=== PATIENT | male | born 1985 | race Caucasian/White ===

== ENCOUNTER 2022-05-02 09:14 | Emergency (ER) | payer MEDICAID, SELFPAY ==
[2022-05-02] VITALS (7 sets, daily range): BP systolic 106–140; BP diastolic 63–87; PULSE 58–69; RESP 12–17; TEMP 36.8–36.9; O2SAT 95–98; BMI 23.6
--- NOTE | 2022-05-02 09:15 | ECG_ITS ---
APPROVED REPORT Exam: Resting ECG HR:69 bpm ECG Measurements Heart Rate 69 AXES TN 153 P 50 QRSd 89 QRS 67 QT 390 T 26 QTc 409 Conclusion SINUS RHYTHM NORMAL ECG UNCONFIRMED REPORT Electronically signed by : Andrew Fairchild MD 05/02/2022 17:35:58
--- NOTE | 2022-05-02 09:20 | XR_ITS ---
FINAL REPORT CLINICAL HISTORY: cp; cough FINDINGS: Two views of the chest show vague opacity in the right perihilar region consistent with pneumonia. The left lung is clear. Pulmonary vascularity is normal. Heart and mediastinum are unremarkable. No pleural effusion is present. IMPRESSION: Opacity in the right perihilar region consistent with pneumonia. Recommend continued follow-up to resolution. Reviewed, Interpreted and Dictated by Sivan Mcqueen MD Transcribed by Sade Cullen Authenticated and [facility]
--- NOTE | 2022-05-02 09:24 | HMH.EDGENADL ---
Discharge Plan Disposition Patient Disposition: Home, Self-Care Condition: Good Prescriptions Prescriptions: New benzonatate 200 mg capsule 200 mg PO TID PRN (Reason: cough) Qty: 20 0RF amoxicillin 500 mg tablet 1,000 mg PO TID 10 Days Qty: 60 0RF Referrals Follow up/Referrals: Provider,Referral, [Primary Care Provider] - See instructions Activity Restrictions/Add. Instructions Additional Instructions/Restrictions: You were evaluated in the emergency department today and diagnosed with pneumonia. 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 Take Tylenol and ibuprofen as needed for pain. Return to the emergency department for any new or worsening symptoms. Follow-up with your primary care provider over the next 48 hours. Clinical Impressions Clinical Impression: Pneumonia Qualifiers: Pneumonia type: due to unspecified organism Laterality: left Lung location: upper lobe of lung Qualified Code(s): J18.9 - Pneumonia, unspecified organism Instructions Patient Instructions: DI for Pneumonia -- Adult, DI for Atypical Chest Pain Discharge ED Provider: Brionna Simpson General Adult HPI General Chief complaint: Chest Pain Stated complaint: Chest pain Time Seen by Provider: 05/02/22 09:16 History of Present Illness HPI narrative: This patient is a 37-year-old male who denies significant past medical history presented to the emergency department for evaluation of substernal chest pain he reports he has had 1 month of productive cough with yellow sputum. He states that over this time period, he is also had unintentional 20 pound weight loss. He states that for the last 5 days, he has had severe substernal chest pain that is worse with coughing. Today, he states that when he coughed it brought him to his knees. Nothing seems to make it better or worse, though he has not tried any medications at home. He denies any recent fevers, chills, abdominal pain, nausea, vomiting, changes bowel movements, rashes, or swelling. He denies any history of blood clots or clotting disorders. He does admit to extensive smoking history, but denies any alcohol, substance, or IV drug use. Related Data Previous Rx's Medication Instructions Recorded amoxicillin 500 mg tablet 1,000 mg PO TID 10 days #60 tabs 05/02/22 benzonatate 200 mg capsule 200 mg PO TID PRN cough #20 caps 05/02/22 Allergies Allergy/AdvReac Type Severity Reaction Status Date / Time tramadol [TRAMADOL] Allergy Mild Unverified 03/26/17 14:56 ibuprofen AdvReac Verified 05/02/22 09:41 [facility] Disclaimer: The information contained in this section may have been updated after the patient was seen, as this information can be updated by other users. Social History Smoking Status: Current every day smoker alcohol intake: never current occupational status: employed Travel in the last 8 weeks: None ROS Obtained: Yes All systems reviewed & no additional complaints except as documented 14 point review of systems obtained and negative except as mentioned in HPI. Physical Exam General General appearance: alert and in no apparent distress Head Head exam: atraumatic and normocephalic Eye Eye exam: Present normal appearance, PERRL and EOMI ENT ENT exam: Present normal exam, normal oropharynx and mucous membranes moist Neck Neck exam: Present normal inspection and full ROM Chest Chest inspection: Present normal inspection, symmetric chest wall rise and tenderness (Tenderness to palpation over the sternum and left chest) Respiratory Respiratory exam: Present normal lung sounds bilaterally; Absent respiratory distress, wheezes, stridor, accessory muscle use or prolonged expiratory phase Cardiovascular Cardiovascular exam: Present regular rate and normal rhythm Abdominal Exam Abdominal exam: Present soft; Absent distention, tenderness or guarding Extremitie
--- NOTE | 2022-05-02 09:32 | PC.NURSE ---
pt returned from radiology via
--- NOTE | 2022-05-02 09:38 | PC.NURSE ---
Family at [facility]
[2022-05-02 09:50] LABS: Basophils % 0.7 % (0.1-2.0); Eosinophils # 0.3 K/mm3 (0.0-0.4); Eosinophils % 4.3 % (0.1-12.0); Hematocrit 41.9 % (42.0-52.0); Lymphocytes # 1.6 K/mm3 (0.7-4.5); Lymphocytes % 26.5 % (10-50); Mean Corpuscular HGB Conc 33.5 g/dL (31.8-35.4); Mean Corpuscular Hemoglobin 30.5 pg (27.0-31.2); Mean Platelet Volume 8.3 fl (7.4-10.4); Monocytes # 0.2 K/mm3 (0.1-1.0); Monocytes % 3.2 % (1.7-9.3); Neutrophils # 3.8 K/mm3 (1.8-7.8); Neutrophils % 65.3 % (37.0-80.0); Platelet Count 370 K/mm3 (142-424); Red Cell Distribution Width 14.5 % (11.5-17.5); White Blood Count 5.9 K/mm3 (4.8-10.8)
[2022-05-02 09:53] LABS: Chloride 102 mmol/L (98-107); Sodium 140 mmol/L (136-145)
[2022-05-02 09:54] LABS: Potassium 3.9 mmoL/L (3.5-5.1)
[2022-05-02 09:56] LABS: Alanine Aminotransferase 23 U/L (12-78); Albumin/Globulin Ratio 1.3 (1.1-1.8); Alkaline Phosphatase 66 U/L (38-126); Anion Gap 9.9 mEq/L (5-15); Aspartate Amino Transferase 31 U/L (17-59); Bilirubin,Total 0.6 mg/dl (0.2-1.3); Blood Urea Nitrogen 7 mg/dl (9-20); Calcium 8.7 mg/dl (8.4-10.2); Carbon Dioxide 32 mmol/L (22.0-30.0); Creatinine Clearance Estimated 151 mL/min (50-200); Estimated Glomerular Filt Rate 126 ml/min (>60); GFR (African American) 153 ML/MIN (>60); Globulin 3.1 g/dL (1.3-3.2); Glucose 139 mg/dl (74-100); Total Protein,Serum 7.1 g/dl (6.3-8.2)
[2022-05-02 10:08] LABS: Troponin I < 0.01 ng/ml (0.00-0.034)
== END 2022-05-02 11:17 | disposition home or self-care (01) ==
PROVIDERS: Emergency Provider Emergency Medicine
DX: J18.1 Lobar pneumonia, unspecified organism (principal); R07.89 Other chest pain; F17.210 Nicotine dependence, cigarettes, uncomplicated
CPT/HCPCS: 71046; 80053; 84484; 85025; 93005; 96361; 96374; 99285